=== PATIENT | female | born 1980 ===

== ENCOUNTER 2020-01-26 16:19 | Inpatient (IN) | payer OTHER ==
[~2020-01-26] VITALS: Ht 165.1 cm; Wt 3.2 kg
[2020-01-26] MEDS ORDERED: LOVENOX40 MG/0.4 SUBCUTANEO (17:04)
[2020-01-26] MEDS ORDERED: SYNTHROID137 MCG PO (17:06)
[2020-01-26] MEDS ORDERED: PRENATAL TABLE1 EAC3 PO (17:09)
== END 2020-01-29 13:11 | disposition home or self-care (01) | DRG 788 ==
LOC: LDR 16:19 → O/R 01-27 13:14 → OB/GYN 01-27 15:35
PROVIDERS: ADMIT Specialist
PROC: 4A1HXCZ Monitoring of Products of Conception, Cardiac Rate, External Approach (ICD-10-PCS; 2020-01-26)
PROC: 10D00Z1 Extraction of Products of Conception, Low, Open Approach (ICD-10-PCS; principal; 2020-01-27 12:00)
DX: O82 Encounter for cesarean delivery without indication (principal); Z3A.37 37 weeks gestation of pregnancy; Z37.0 Single live birth